=== PATIENT | male | born 1950 | race Caucasian/White ===

== ENCOUNTER 2021-10-25 03:22 | Inpatient (IN) | payer MEDICARE ==
[~2021-10-25] VITALS: Ht 177.8 cm; Wt 69.4 kg
--- NOTE | 2021-10-25 03:40 | NUR ---
TO ER BED 2. BIBS. C/O UPPER ABDOMINAL PAIN X 3 DAYS. AGGREVATED BY EATING. PT IS ALERT AND ORIENTED. AMBULATORY WITH STEADY GAIT. BREATHING IS EVEN AND NON LABORED. CONNECTED TO MONITOR. AWAITING MD ORDERS
[2021-10-25] MEDS ORDERED: ONDANSETRON HCL/PF 4 MG/2 ML VIAL ONE ×2 (03:52→06:00)
[2021-10-25] MEDS ORDERED: ONDANSETRON HCL/PF 4 MG/2 ML VIAL IVP ONE (04:00)
[2021-10-25] MEDS ORDERED: IV NS 0.9% 500 ML BAG IV ONE (04:00)
--- NOTE | 2021-10-25 04:00 | NUR ---
IV LINE ESTABLISHED, RAC20G. BLOOD COLLECTED AND SENT TO LAB
--- NOTE | 2021-10-25 04:03 | NUR ---
XRAY AT BEDSIDE
--- NOTE | 2021-10-25 04:06 | NUR ---
URINE COLLECTED AND SENT TO LAB
[2021-10-25 04:23] LABS: BASOPHILS # (AUTO) 0.1 K/uL (0.0-0.2); BASOPHILS % (AUTO) 0.8 % (0.0-2.0); EOSINOPHILS % (AUTO) 4.9 % (0.0-6.0); HEMATOCRIT 48 % (39-51); HEMOGLOBIN 16.5 g/dL (13.5-17.5); LYMPHOCYTES # (AUTO) 1.9 K/uL (0.8-4.8); LYMPHOCYTES % (AUTO) 18.8 % (20.0-44.0); MEAN CORPUSCULAR HGB CONC 34 g/dl (31.0-36.0); MEAN CORPUSCULAR VOLUME 95 fL (80-96); MONOCYTES # (AUTO) 0.9 K/uL (0.1-1.30); MONOCYTES % (AUTO) 8.7 % (2.0-12.0); NEUTROPHILS # (AUTO) 6.8 K/uL (1.8-8.9); NEUTROPHILS % (AUTO) 66.8 % (43.0-81.0); PLATELET COUNT (AUTO) 193 K/uL (150-450); RED BLOOD CELL COUNT(AUTO) 5.05 MIL/uL (4.5-6.0); WHITE BLOOD COUNT (AUTO) 10.2 K/uL (4.3-11.0)
[2021-10-25 04:28] LABS: BILIRUBIN,URINE MODERATE (NEGATIVE); COLOR,URINE DARK YELLOW (YELLOW); LEUKOCYTE ESTERASE ,URINE NEGATIVE (NEGATIVE); NITRITE, URINE NEGATIVE (NEGATIVE); PH,URINE 6.5 (5.0-8.0); PROTEIN,URINE 30 mg/dl (NEGATIVE); UGLUCOSE NEGATIVE (NEGATIVE)
[2021-10-25 04:39] LABS: CALCIUM, SERUM 8.4 mg/dL (8.5-10.1); CARBON DIOXIDE 30 mmol/L (21-32); CHLORIDE 100 mmol/L (98-107); CREATININE 1.1 mg/dL (0.6-1.3); GLUCOSE 126 mg/dL (74-106); SODIUM SERUM 138 mmol/L (136-145); UREA NITROGEN, BLOOD 12 mg/dL (7-18)
[2021-10-25 04:39] LABS: BACTERIA,URINE Rare /HPF (None Seen); RBC,URINE 0-2 /HPF (0-2); SQUAMOUS EPITHELIAL CELL,UR Few /HPF (None Seen)
[2021-10-25 04:42] LABS: ALANINE AMINOTRANSFERASE 135 U/L (12-78); ALKALINE PHOSPHATASE 236 U/L (46-116); ASPARTATE AMINOTRANSFERASE 73 U/L (15-37); BILIRUBIN,DIRECT 3.8 mg/dL (0.0-0.2); BILIRUBIN,TOTAL 4.6 mg/dL (0.2-1.0); TOTAL PROTEIN, SERUM 7.4 g/dL (6.4-8.2)
[2021-10-25] MEDS ORDERED: POTASSIUM CHLORIDE 20 MEQ TAB.PRT.SR PO ONE ×2 (05:11→05:30)
[2021-10-25] MEDS ORDERED: MORPHINE SULFATE INJ 4 MG/ML DISP.SYRIN ONE (06:00)
[2021-10-25] MEDS ORDERED: ONDANSETRON HCL/PF 4 MG/2 ML VIAL IV ONE (06:00)
[2021-10-25] MEDS ORDERED: MORPHINE SULFATE INJ 2 MG/ML DISP.SYRIN IV ONE (06:00)
[2021-10-25] MEDS ORDERED: ONDANSETRON HCL/PF 4 MG/2 ML VIAL IVP PRN (06:00)
[2021-10-25] MEDS ORDERED: ACETAMINOPHEN 325 MG TABLET PO PRN (06:00)
--- NOTE | 2021-10-25 06:30 | NUR ---
ACCOUNT MANAGER SALES REPRESENTATIVE NOTIFIED.
[2021-10-25 07:40] LABS: LIPASE 150 U/L (73-393)
--- NOTE | 2021-10-25 07:44 | NUR ---
GOT BED 314-1
--- NOTE | 2021-10-25 07:54 | NUR ---
REPORT GIVEN TO JOSE C DELVALLE FOR CARLIE
--- NOTE | 2021-10-25 08:29 | NUR ---
TRANSFERRED TO BED 314 IN STABLE CONDITION
[2021-10-25 09:00] VITALS: BP 135/79
--- NOTE | 2021-10-25 09:00 | NUR ---
MS BEHAVIORAL THERAPIST NOTES RECEIVED PATIENT FROM ER VIA RBAYSIDE ENDORSED BY MOOK OLIVIA. PATIENT IS AWAKE AND A/O X4. ON ROOM AIR TOLERATING WELL. NO SOB NOTED. NOT IN DISTRESS. WITH COMPLAINTS OF ABDOMINAL PAIN AT THE SCALE OF 7 BUT IS NOT ASKING FOR PAIN MEDICATION AT THIS TIME. COMFORT MEASURES PROVIDED. WITH IV ACCESS AT THE RIGHT AC G20, SALINE LOCKED, PATENT AND INTACT. SAFETY MEASURES IN PLACED. CALL LIGHT WITHIN REACH. BED ON LOWEST LOCKED POSITION, SIDE RAILS UP X2. WILL CONTINUE TO MONITOR.
[2021-10-25] MEDS: IV NS 0.9% 1,000 ML IV PRN ×2 (11:53→19:28)
[2021-10-25] MEDS: MORPHINE SULFATE INJ 2 MG/ML DISP.SYRIN IV PRN ×3 (13:05→23:51)
--- NOTE | 2021-10-25 18:34 | NUR ---
MS RN CLOSING NOTES PATIENT ON BED AWAKE AND A/O X4. ON ROOM AIR TOLERATING WELL. NO SOB NOTED. NOT IN DISTRESS. WITH COMPLAINTS OF ABDOMINAL PAIN AT THE SCALE OF 5. COMFORT MEASURES PROVIDED. WITH IV ACCESS AT THE RIGHT AC G20 WITH IVF NS AT 125ML/HR INFUSING WELL, PATENT AND INTACT. FOR ERCP TOMORROW IN AM. NPO POST MIDNIGHT. CONSENTS OBTAINED AND PLACED IN CHART. SAFETY MEASURES IN PLACED. CALL LIGHT WITHIN REACH. BED ON LOWEST LOCKED POSITION, SIDE RAILS UP X2. WILL ENDORSE TO NEXT SHIFT FOR CARLIE.
--- NOTE | 2021-10-25 19:30 | NUR ---
RN OPENING NOTE PATIENT IN BED, AWAKE, PATIENT IS A/O X 4 ABLE TO MAKE NEEDS KNOWN. PATIENT'S SPOUSE AT BEDSIDE. PATIENT IS ON RA, TOLERATING WELL. NO RESPIRATORY DISTRESS NOTED. RAC 20 G RUNNING NS AT 125 ML/HR. PATIENT DOES NOT REPORT OF ANY PAIN AT THIS TIME. SAFETY MEASURES IN PLACE: BED LOCKED AND IN LOWEST POSITION, CALL LIGHT WITHIN REACH, SIDE RAILS UP. WILL MONITOR PATIENT CLOSELY.
[2021-10-25 20:00] VITALS: BP 131/70
--- NOTE | 2021-10-25 23:51 | NUR ---
RN NOTE MORPHINE 2MG IV GIVEN TO PATIENT TO MANAGE SEVERE PAIN. WILL REASSESS PAIN AT A LATER TIME.
[2021-10-26] MEDS: IV NS 0.9% 1,000 ML IV PRN (01:13)
[2021-10-26] MEDS: MORPHINE SULFATE INJ 2 MG/ML DISP.SYRIN IV PRN ×3 (04:25→21:40)
--- NOTE | 2021-10-26 04:25 | NUR ---
RN NOTE MORPHINE 2MG IV GIVEN TO PATIENT TO MANAGE 8/10 PAIN. WILL REASSESS PAIN AT A LATER TIME.
[2021-10-26 07:13] LABS: BASOPHILS % (AUTO) 0.4 % (0.0-2.0); EOSINOPHILS % (AUTO) 1.2 % (0.0-6.0); HEMATOCRIT 46 % (39-51); HEMOGLOBIN 15.8 g/dL (13.5-17.5); LYMPHOCYTES # (AUTO) 1.3 K/uL (0.8-4.8); LYMPHOCYTES % (AUTO) 13.3 % (20.0-44.0); MEAN CORPUSCULAR HGB CONC 35 g/dl (31.0-36.0); MEAN CORPUSCULAR VOLUME 95 fL (80-96); MONOCYTES # (AUTO) 0.7 K/uL (0.1-1.30); MONOCYTES % (AUTO) 7.5 % (2.0-12.0); NEUTROPHILS # (AUTO) 7.7 K/uL (1.8-8.9); NEUTROPHILS % (AUTO) 77.6 % (43.0-81.0); PLATELET COUNT (AUTO) 171 K/uL (150-450); RED BLOOD CELL COUNT(AUTO) 4.83 MIL/uL (4.5-6.0)
[2021-10-26 07:45] LABS: ALBUMIN 3.2 g/dL (3.4-5.0); BILIRUBIN,DIRECT 4.9 mg/dL (0.0-0.2); BILIRUBIN,TOTAL 6.2 mg/dL (0.2-1.0); CALCIUM, SERUM 7.8 mg/dL (8.5-10.1); CREATININE 0.9 mg/dL (0.6-1.3); MAGNESIUM 1.8 mg/dL (1.8-2.4); PHOSPHORUS 1.8 mg/dL (2.5-4.9); POTASSIUM 3.3 mmol/L (3.5-5.1); TOTAL PROTEIN, SERUM 6.2 g/dL (6.4-8.2)
[2021-10-26 08:00] VITALS: BP 133/67
--- NOTE | 2021-10-26 08:00 | NUR ---
RN OPENING NOTE PATIENT RECEIVED IN BED AND AWAKE. A/OX4. NO S/SX OF DISTRESS OBSERVED OR REPORTED. DENIES PAIN AT THIS TIME. ABLE TO VERBALIZE ALL NEEDS. IV ACCESS TO RAC INTACT AND PATENT. NO S/SX OF INFILTRATION OR BLEEDING. AMBULATES TO/FROM BATHROOM WELL ON UNIT WITHOUT ASSIST. REMAINS ON NPO DIET HE HAS SCHEDULED FOR ERCP TODAY ON SHIFT; WILL FOLLOW UP. SAFETY MEASURE SIN PLACE WITH BED IN LOWEST POSITION AND LOCKED SIDERAIL UPX2. CALL LIGHT WITHIN REACH. WILL CONTINUE TO MONITOR.
[2021-10-26] MEDS: POTASSIUM CL. PREMIX PERIPHER. 50 ML IV SCH ×2 (11:03→12:07)
--- NOTE | 2021-10-26 14:15 | NUR ---
RN NOTE PATIENT TAKEN BY BED TO SURGICAL DEPARTMENT FOR SCHEDULED ERCP
[2021-10-26] MEDS ORDERED: IOHEXOL 240MG/ML 100 ML IV ONE (15:33)
[2021-10-26] MEDS ORDERED: INDOMETHACIN 50 MG SUPP.RECT ONE (15:33)
[2021-10-26] MEDS ORDERED: Sodium Phosphate 30 MMOL in IV NS 0.9% 250 ML IV SCH (17:00)
--- NOTE | 2021-10-26 17:20 | NUR ---
RN NOTE PATIENT BROUGHT BACK TO UNIT FROM SURGERY VIA BED. PATIENT AWAKE WITH NO S/SX OF RESPIRATORY DISTRESS OR C/O PAIN AT THIS TIME. WILL CONTINUE TO MONITOR
--- NOTE | 2021-10-26 18:53 | NUR ---
RN CLOSING NOTE PATIENT A/O X4. NO S/SX OF RESPIRATORY DISTRESS. C/O PAIN & NAUSEA ON SHIFT @ 0930. RECEIVED PRN MORPHINE AND ZOFRAN VIA IV ROUTE. MEDICATIONS EFFECTIVE. IV ACCESS TO RAC REMAINS INTACT AND PATENT AT THIS TIME. NO S/SX OF INFILTRATION. REMAINED ON NPO DIET UNTIL TAKEN OFF UNIT @ 1415 FOR SCHEDULED ERCP PROCEDURE. RETURNED BACK TO UNIT @ 1717. TOLERATED PROCEDURE WELL. DIET CHANGED FROM NPO TO REGULAR PER MD ORDER. RECEIVED DINNER TRAY. TOLERATED WELL. AMBULATED TO/FROM BATHROOM MULTIPLE TIMES UPON RETURN FROM SURGERY. CURRENTLY RECEIVING IV FLUID- SODIUM PHOSPHATE @ 43.3MLS/HR FOR 6HRS. TOLERATING FLUIDS WELL. NO CURRENT C/O PAIN AT THIS TIME. STABLE AND ON RA. ABLE TO VERBALIZE NEEDS. SAFETY MEASURES REMAIN INTACT WITH BED IN LOWEST POSITION AND LOCKED. SIDERAILS UPX2. CALL LIGHT WITHIN REACH. WILL CONTINUE TO MONITOR.
--- NOTE | 2021-10-26 19:30 | NUR ---
MS RN OPENING NOTE RECEIVED PATIENT IN BED, A/OX4, NO S/S OF APPARENT DISTRESS, DENIES PAIN AT THIS TIME. 1 VISITOR AT BEDSIDE. IV SODIUM PHOSPHATE RUNNING @43.3MLS/HR. SAFETY IN PLACE. RE-ORIENTED AND ENCOURAGED WITH THE USE OF CALL LIGHT. SAFETY IN PLACE. WILL CONTINUE WITH PLAN OF CARE FOR PATIENT.
[2021-10-26 20:00] VITALS: BP 129/69
[2021-10-27 06:28] LABS: BASOPHILS % (AUTO) 0.1 % (0.0-2.0); HEMATOCRIT 44 % (39-51); LYMPHOCYTES % (AUTO) 11.3 % (20.0-44.0); MEAN CORPUSCULAR HGB CONC 34 g/dl (31.0-36.0); MEAN CORPUSCULAR VOLUME 95 fL (80-96); MONOCYTES # (AUTO) 0.7 K/uL (0.1-1.30); MONOCYTES % (AUTO) 7.2 % (2.0-12.0); NEUTROPHILS # (AUTO) 7.5 K/uL (1.8-8.9); NEUTROPHILS % (AUTO) 81.4 % (43.0-81.0); PLATELET COUNT (AUTO) 179 K/uL (150-450); RED BLOOD CELL COUNT(AUTO) 4.66 MIL/uL (4.5-6.0); WHITE BLOOD COUNT (AUTO) 9.2 K/uL (4.3-11.0)
--- NOTE | 2021-10-27 07:18 | NUR ---
MS RN NOTES RECEIVED PATIENT IN BED AND AWAKE. PATIENT IS A/OX4. NO DISTRESS NOTED. DENIES PAIN AT THIS TIME. ABLE TO VERBALIZE ALL NEEDS. IV ACCESS TO RAC g # 20 INTACT AND PATENT. NO S/SX OF INFILTRATION OR BLEEDING. AMBULATORY. REMAINS ON NPO DIET HE HAS SCHEDULED FOR [facility] POSSIBLE OPEN SURGERY TODAY. SAFETY MEASURE IN PLACE WITH BED IN LOWEST POSITION AND LOCKED SIDERAIL UPX2. CALL LIGHT AND TABLE WITHIN REACH. WILL CONTINUE TO MONITOR.
[2021-10-27 07:22] LABS: CALCIUM, SERUM 8.2 mg/dL (8.5-10.1); MAGNESIUM 2.3 mg/dL (1.8-2.4); POTASSIUM 3.9 mmol/L (3.5-5.1)
--- NOTE | 2021-10-27 07:27 | NUR ---
MS RN CLOSING NOTE NEEDS ATTENDED. REPORT GIVEN TO ANI FOR CONTINUITY OF CARE.
[2021-10-27 08:05] LABS: BILIRUBIN,TOTAL 5.9 mg/dL (0.2-1.0); PHOSPHORUS 2.7 mg/dL (2.5-4.9); TOTAL PROTEIN, SERUM 6.1 g/dL (6.4-8.2)
[2021-10-27] MEDS ORDERED: FENTANYL PF 100MCG/2ML AMPUL ONE (09:31)
[2021-10-27] MEDS ORDERED: ROCURONIUM BROMIDE 50 MG/5 ML ONE (09:32)
[2021-10-27] MEDS ORDERED: ANESTHESIA TRAY IN PYXIS 1 EA TRAY MC ONE (11:26)
[2021-10-27] MEDS ORDERED: BUPIVACAINE MPF 0.5% W/EPI INJ 30 ML VIAL ONE (11:26)
[2021-10-27] MEDS ORDERED: LIDOCAINE 1% INJ 50 ML MDV IJ ONE (11:26)
--- NOTE | 2021-10-27 11:30 | NUR ---
RN NOTES PATIENT LEFT UNIT AT 1126 FOR SURGERY.
[2021-10-27] MEDS ORDERED: LABETALOL HCL IV 100MG VIAL ONE (12:18)
[2021-10-27] MEDS ORDERED: BACITRACIN ZINC OINT (15 GM) 15 GM TUBE TP ONE (13:33)
--- NOTE | 2021-10-27 15:00 | NUR ---
RN NOTES PATIENT ARRIVED FROM SURGERY AT 1500. VITAL SIGNS IN NORMAL RANGES. LU=192/81, P=75, T=98.1, ON 02 = 98%. NO PAIN NO DISTRESS NOTED. WILL CONTINUE TO MONITOR.
[2021-10-27] MEDS: ACETAMINOPHEN 325 MG TABLET PO SCH ×2 (15:10→23:00)
[2021-10-27] MEDS: GABAPENTIN 300 MG CAPSULE PO SCH ×2 (15:10→23:00)
[2021-10-27] MEDS: IBUPROFEN 400 MG TABLET PO SCH ×2 (15:10→23:00)
--- NOTE | 2021-10-27 19:30 | NUR ---
MS RN OPENING NOTE RECEIVED PATIENT IN BED, A/OX4, NO S/S OF APPARENT DISTRESS, PAIN TOLERABLE AT THIS TIME PER PATIENT. NO IV FLUIDS RUNNING AT THIS TIME. RE-ORIENTED AND ENCOURAGED WITH THE USE OF CALL LIGHT. SAFETY IN PLACE. WILL CONTINUE WITH PLAN OF CARE FOR PATIENT.
[2021-10-27 20:14] VITALS: BP 138/75
--- NOTE | 2021-10-27 20:20 | NUR ---
MS RN CLOSING NOTES PATIENT IN BED AND AWAKE. PATIENT IS A/OX4. NO DISTRESS NOTED. DENIES PAIN AT THIS TIME. ABLE TO VERBALIZE ALL NEEDS. IV ACCESS TO RAC g # 20 INTACT AND PATENT. NO S/SX OF INFILTRATION OR BLEEDING. AMBULATORY. ALL DUE MEDS GIVEN ORDERED.ALL SAFETY MEASURE IN PLACE WITH BED IN LOWEST POSITION AND LOCKED SIDERAIL UPX2. CALL LIGHT AND TABLE WITHIN REACH. WILL ENDORS EFOR CARLIE.
[2021-10-27] MEDS: MORPHINE SULFATE INJ 2 MG/ML DISP.SYRIN IV PRN (23:22)
--- NOTE | 2021-10-27 23:38 | NUR ---
MS RN NOTE- NON-ADMIN PATIENT REFUSED SCHEDULED 2300 MOTRIN, NEURONTIN, TYLENOL. PER PATIENT IT MADE HIM HAVE AN UPSET STOMACH EARLIER AND WOULD RATHER WAIT IT OUT AND GET THE MORPHINE WHEN HE NEEDS IT.
[2021-10-28 06:40] LABS: BASOPHILS % (AUTO) 0.2 % (0.0-2.0); HEMATOCRIT 40 % (39-51); HEMOGLOBIN 13.3 g/dL (13.5-17.5); LYMPHOCYTES # (AUTO) 1.3 K/uL (0.8-4.8); LYMPHOCYTES % (AUTO) 11.2 % (20.0-44.0); MEAN CORPUSCULAR HGB CONC 33 g/dl (31.0-36.0); MEAN CORPUSCULAR VOLUME 95 fL (80-96); MONOCYTES # (AUTO) 0.7 K/uL (0.1-1.30); MONOCYTES % (AUTO) 6.4 % (2.0-12.0); NEUTROPHILS # (AUTO) 9.5 K/uL (1.8-8.9); NEUTROPHILS % (AUTO) 82.2 % (43.0-81.0); PLATELET COUNT (AUTO) 191 K/uL (150-450); RED BLOOD CELL COUNT(AUTO) 4.17 MIL/uL (4.5-6.0); WHITE BLOOD COUNT (AUTO) 11.6 K/uL (4.3-11.0)
[2021-10-28 06:53] LABS: ALBUMIN 2.8 g/dL (3.4-5.0); BILIRUBIN,DIRECT 4.8 mg/dL (0.0-0.2); BILIRUBIN,TOTAL 5.5 mg/dL (0.2-1.0); CREATININE 1.1 mg/dL (0.6-1.3); MAGNESIUM 2.2 mg/dL (1.8-2.4); PHOSPHORUS 2.4 mg/dL (2.5-4.9); POTASSIUM 3.6 mmol/L (3.5-5.1); TOTAL PROTEIN, SERUM 5.6 g/dL (6.4-8.2)
[2021-10-28] MEDS: ACETAMINOPHEN 325 MG TABLET PO SCH ×3 (07:06→23:25)
[2021-10-28] MEDS: IBUPROFEN 400 MG TABLET PO SCH ×3 (07:06→23:00)
[2021-10-28] MEDS: GABAPENTIN 300 MG CAPSULE PO SCH ×3 (07:07→23:25)
--- NOTE | 2021-10-28 07:20 | NUR ---
MS RN OPENING NOTE RECEIVED PATIENT IN BED. PATIENT IS ALERT AND ORIENTED X 4. PATIENT IS ON ROOM AIR WITH NO SIGNS AND SYMPTOMS OF RESPIRATORY DISTRESS. PATIENT WITH IV ACCESS ON THE RIGHT AC ON SALINE LOCK, PATENT AND INTACT. WITH 3 DRESSING ON THE ABDOMEN, DRY AND INTACT. CALL LIGHT WITHIN REACH, BED ON LOWEST LOCKED POSITION AND SIDERAILS RAISED FOR SAFETY. SEIZURE PRECAUTIONS ENFORCED. WILL CONTINUE WITH PLAN OF CARE FOR PATIENT.
--- NOTE | 2021-10-28 07:33 | NUR ---
MS RN NOTE CLOSING NEEDS ATTENDED. ENDORSED TO MOOK RAMSEY FOR CONTINUITY OF CARE.
[2021-10-28 08:26] VITALS: BP 126/70
--- NOTE | 2021-10-28 08:30 | NUR ---
MS RN NOTE PATIENT STARTED ON SOFT DIET TOLERATED WELL, IN STABLE CONDITION.
--- NOTE | 2021-10-28 10:30 | NUR ---
MS RN NOTE PATIENT ON NPO PER, DR. FUNK, WILL HAVE ERCP TODAY UNDER DR. MENSAH. PATIENT AND NOTIFIED, WANTS TO SPEAK WITH GI MD BEFORE HE SIGNS THE CONSENT. LEFT MESSAGE TO DR. MENSAH.
[2021-10-28] MEDS ORDERED: DIPHENHYDRAMINE HCL 12.5 MG/5 ML UDC PO ONE (11:00)
[2021-10-28] MEDS ORDERED: K PHOS NEUTRAL 250 MG TABLET PO ONE (11:00)
[2021-10-28] MEDS ORDERED: diphenhydrAMINE HCL 25 MG CAPSULE PO ONE (11:30)
--- NOTE | 2021-10-28 12:10 | NUR ---
MS RN NOTE DR. KOEHLER SPOKE WITH PATIENT.
--- NOTE | 2021-10-28 14:00 | NUR ---
MS RN NOTE SECURED CONSENT AND ATTACHED TO CHART. WILL CONTINUE ON NPO. IN STABLE CONDITION.
[2021-10-28 15:50] VITALS: BP 122/70
--- NOTE | 2021-10-28 16:44 | NUR ---
MS RN NOTE PATIENT FOR ERCP, ORAL MEDICATION HELD INDICATED.
[2021-10-28] MEDS ORDERED: INDOMETHACIN 50 MG SUPP.RECT ONE (18:55)
[2021-10-28] MEDS ORDERED: IOHEXOL 240MG/ML 100 ML IV ONE (18:55)
--- NOTE | 2021-10-28 19:00 | NUR ---
MS RN NOTE PATIENT PICKED UP FOR OR. IN STABLE CONDITION. ENDORSED TO NEXT SHIFT FOR CONTINUITY OF CARE.
--- NOTE | 2021-10-28 19:37 | NUR ---
RN OPENING NOTE PATIENT IS IN OR CURRENTLY. DAY RN, BRAULIO, ENDORSED REPORT TO THIS NURSE.
--- NOTE | 2021-10-28 20:50 | NUR ---
RN NOTE PATIENT RETURNED FROM OR W/ PARTNER WELL ACCOMPANIED BY TWO OR NURSES. PATIENT IS STABLE. A/OX4. VS WNL: BP 145/71, T 97.8, HR 57, R 18, O2 97% ROOM AIR, 0/10 PAIN. PATIENT WAS PLACED ON NC O2 (2L) FOR COMFORT, BUT AFTER HAVING ARRIVED TO ASSIGNED ROOM PATIENT REFUSED NC USE, SATTING WELL W/O DIFFICULTY. PATIENT IS FULLY AMBULATORY, WALKING, TALKING, WAS ABLE TO URINATE AND PASS GAS. PATIENT STABLE; WILL CONTINUE TO MONITOR PATIENT.
--- NOTE | 2021-10-28 22:38 | NUR ---
RN NOTE PATIENT'S SISTER, GIULIANA, CONTACTED THE UNIT TO CHECK ON THE STATUS OF HER BROTHER. ALL INFORMATION VERIFIED OF SISTER AND PATIENT BEFORE PROCEEDING. ALL QUESTIONS AND CONCERNS ADDRESSED. PATIENT STABLE; WILL CONTINUE TO MONITOR PATIENT.
[2021-10-28 23:25] LABS: BASOPHILS % (AUTO) 0.3 % (0.0-2.0); EOSINOPHILS % (AUTO) 1.6 % (0.0-6.0); HEMATOCRIT 40 % (39-51); HEMOGLOBIN 13.6 g/dL (13.5-17.5); LYMPHOCYTES # (AUTO) 1.9 K/uL (0.8-4.8); LYMPHOCYTES % (AUTO) 23.9 % (20.0-44.0); MEAN CORPUSCULAR HGB CONC 34 g/dl (31.0-36.0); MEAN CORPUSCULAR VOLUME 96 fL (80-96); MONOCYTES # (AUTO) 0.5 K/uL (0.1-1.30); MONOCYTES % (AUTO) 6.4 % (2.0-12.0); NEUTROPHILS # (AUTO) 5.3 K/uL (1.8-8.9); NEUTROPHILS % (AUTO) 67.8 % (43.0-81.0); PLATELET COUNT (AUTO) 190 K/uL (150-450); RED BLOOD CELL COUNT(AUTO) 4.15 MIL/uL (4.5-6.0); WHITE BLOOD COUNT (AUTO) 7.8 K/uL (4.3-11.0)
[2021-10-28 23:40] LABS: ALBUMIN 2.7 g/dL (3.4-5.0); BILIRUBIN,TOTAL 4.5 mg/dL (0.2-1.0); CALCIUM, SERUM 7.6 mg/dL (8.5-10.1); POTASSIUM 3.4 mmol/L (3.5-5.1); TOTAL PROTEIN, SERUM 5.6 g/dL (6.4-8.2)
--- NOTE | 2021-10-29 06:42 | NUR ---
RN CLOSING NOTE PATIENT ASLEEP IN BED. A/OX4. NO S/S OF DISTRESS, BREATHING WITHOUT DIFFICULT ON ROOM AIR. RAC #20 SL INTACT AND PATENT. SAFETY MEASURES IN PLACE: BED AT LOWEST POSITION, AND LOCKED, RAILS UP X2, CALL ALMEIDA WITHIN REACH. WILL ENDORSE TO NEXT SHIFT FOR CARLIE.
[2021-10-29 07:06] LABS: BASOPHILS % (AUTO) 0.6 % (0.0-2.0); EOSINOPHILS % (AUTO) 2.8 % (0.0-6.0); HEMATOCRIT 41 % (39-51); HEMOGLOBIN 13.8 g/dL (13.5-17.5); LYMPHOCYTES # (AUTO) 1.5 K/uL (0.8-4.8); MEAN CORPUSCULAR HGB CONC 34 g/dl (31.0-36.0); MEAN CORPUSCULAR VOLUME 95 fL (80-96); MONOCYTES # (AUTO) 0.5 K/uL (0.1-1.30); MONOCYTES % (AUTO) 8.1 % (2.0-12.0); NEUTROPHILS # (AUTO) 4.4 K/uL (1.8-8.9); NEUTROPHILS % (AUTO) 66.5 % (43.0-81.0); PLATELET COUNT (AUTO) 202 K/uL (150-450); RED BLOOD CELL COUNT(AUTO) 4.34 MIL/uL (4.5-6.0); WHITE BLOOD COUNT (AUTO) 6.6 K/uL (4.3-11.0)
[2021-10-29 07:08] LABS: ALBUMIN 2.7 g/dL (3.4-5.0); BILIRUBIN,TOTAL 4.6 mg/dL (0.2-1.0); CALCIUM, SERUM 7.7 mg/dL (8.5-10.1); CREATININE 0.9 mg/dL (0.6-1.3); MAGNESIUM 2.1 mg/dL (1.8-2.4); PHOSPHORUS 2.9 mg/dL (2.5-4.9); TOTAL PROTEIN, SERUM 5.7 g/dL (6.4-8.2)
[2021-10-29 07:30] LABS: POTASSIUM 3.7 mmol/L (3.5-5.1)
--- NOTE | 2021-10-29 07:40 | NUR ---
RN OPENING NOTE PATIENT RECEIVED IN BED AND AWAKE. A/OX4. NO S/SX OF DISTRESS OBSERVED OR REPORTED. S/P ERCP PERFORMED ON 10/27/21. DENIES PAIN AT THIS TIME. ABLE TO VERBALIZE ALL NEEDS. IV ACCESS TO RFA INTACT AND PATENT. NO S/SX OF INFILTRATION OR BLEEDING. AMBULATES TO/FROM BATHROOM WELL ON UNIT AND THROUGHOUT BEDROOM WITHOUT ASSIST. SAFETY MEASURES IN PLACE WITH BED IN LOWEST POSITION AND LOCKED SIDERAIL UPX2. CALL LIGHT WITHIN REACH. WILL CONTINUE TO MONITOR.
[2021-10-29 08:00] VITALS: BP_SYST 124; BP_SYST 147; BP_DIAS 75; BP_DIAS 79
[2021-10-29] MEDS: ACETAMINOPHEN 325 MG TABLET PO SCH ×5 (08:16→23:34)
[2021-10-29] MEDS: IBUPROFEN 400 MG TABLET PO SCH ×4 (08:16→23:33)
[2021-10-29] MEDS: GABAPENTIN 300 MG CAPSULE PO SCH ×4 (08:16→23:34)
--- NOTE | 2021-10-29 18:18 | NUR ---
RN CLOSING NOTE PATIENT A/O X4. NO S/SX OF RESPIRATORY DISTRESS. NO C/O PAIN. IV ACCESS TO RA REMAINS INTACT AND PATENT AT THIS TIME; CURRENTLY SALINE LOCKED. NO S/SX OF INFILTRATION. OBSERVED AMBULATING TO/FROM BATHROOM WELL ON UNIT. MULTIPLE TIMES UPON RETURN FROM SURGERY. REMAINS STABLE AND ON RA. ABLE TO VERBALIZE NEEDS. SAFETY MEASURES REMAIN INTACT WITH BED IN LOWEST POSITION AND LOCKED. SIDERAILS UPX2. CALL LIGHT WITHIN REACH. WILL CONTINUE TO MONITOR.
--- NOTE | 2021-10-29 19:43 | NUR ---
RN OPENING NOTE PATIENT A/O X4. NO S/SX OF RESPIRATORY DISTRESS. NO C/O PAIN. IV ACCESS TO RA REMAINS INTACT AND PATENT AT THIS TIME; CURRENTLY SALINE LOCKED. NO S/SX OF INFILTRATION. OBSERVED AMBULATING TO/FROM BATHROOM WELL ON UNIT. REMAINS STABLE AND ON RA. ABLE TO VERBALIZE NEEDS. SAFETY MEASURES REMAIN INTACT WITH BED IN LOWEST POSITION AND LOCKED. SIDERAILS UPX2. CALL LIGHT WITHIN REACH. WILL CONTINUE TO MONITOR.
[2021-10-29 20:10] VITALS: BP 134/76
[2021-10-30 06:27] LABS: BASOPHILS % (AUTO) 0.6 % (0.0-2.0); EOSINOPHILS % (AUTO) 6.2 % (0.0-6.0); HEMATOCRIT 42 % (39-51); HEMOGLOBIN 14.3 g/dL (13.5-17.5); LYMPHOCYTES # (AUTO) 1.5 K/uL (0.8-4.8); LYMPHOCYTES % (AUTO) 23.2 % (20.0-44.0); MEAN CORPUSCULAR HGB CONC 34 g/dl (31.0-36.0); MEAN CORPUSCULAR VOLUME 95 fL (80-96); MONOCYTES # (AUTO) 0.5 K/uL (0.1-1.30); MONOCYTES % (AUTO) 7.8 % (2.0-12.0); NEUTROPHILS % (AUTO) 62.2 % (43.0-81.0); PLATELET COUNT (AUTO) 225 K/uL (150-450); RED BLOOD CELL COUNT(AUTO) 4.44 MIL/uL (4.5-6.0); WHITE BLOOD COUNT (AUTO) 6.5 K/uL (4.3-11.0)
--- NOTE | 2021-10-30 06:51 | NUR ---
RN CLOSING NOTE PATIENT A/O X4. NO S/SX OF RESPIRATORY DISTRESS. NO C/O PAIN. IV ACCESS TO RA REMAINS INTACT AND PATENT AT THIS TIME; CURRENTLY SALINE LOCKED. NO S/SX OF INFILTRATION. OBSERVED AMBULATING TO/FROM BATHROOM WELL ON UNIT. REMAINS STABLE AND ON RA. ABLE TO VERBALIZE NEEDS. SAFETY MEASURES REMAIN INTACT WITH BED IN LOWEST POSITION AND LOCKED. SIDERAILS UPX2. CALL LIGHT WITHIN REACH. WILL ENDORSE CARE TO AY SHIFT NURSE FOR CARLIE.
[2021-10-30 07:01] LABS: ALBUMIN 2.8 g/dL (3.4-5.0); BILIRUBIN,TOTAL 4.3 mg/dL (0.2-1.0); CALCIUM, SERUM 8.3 mg/dL (8.5-10.1); POTASSIUM 3.9 mmol/L (3.5-5.1); TOTAL PROTEIN, SERUM 5.9 g/dL (6.4-8.2)
[2021-10-30] MEDS: ACETAMINOPHEN 325 MG TABLET PO SCH (07:04)
[2021-10-30] MEDS: GABAPENTIN 300 MG CAPSULE PO SCH (07:04)
[2021-10-30] MEDS: IBUPROFEN 400 MG TABLET PO SCH (07:04)
[2021-10-30 08:00] VITALS: BP 139/75
[2021-10-30] MEDS ORDERED: CALCIUM CARB 600MG /VIT D 1 EACH TABLET PO SCH (09:00)
[2021-10-30] MEDS ORDERED: IBUP-1958 PO (11:31)
== END 2021-10-30 12:00 | disposition home or self-care (01) | DRG 418 ==
LOC: ER 03:41 → MED 07:58
PROVIDERS: ATTEND Nurse Practitioner Acute Care
PROC: 0F798DZ Dilation of Common Bile Duct with Intraluminal Device, Via Natural or Artificial Opening Endoscopic (ICD-10-PCS; 2021-10-26)
PROC: 0FT44ZZ Resection of Gallbladder, Percutaneous Endoscopic Approach (ICD-10-PCS; principal; 2021-10-27)
PROC: 0FPB8DZ Removal of Intraluminal Device from Hepatobiliary Duct, Via Natural or Artificial Opening Endoscopic (ICD-10-PCS; 2021-10-28)
PROC: 0FC98ZZ Extirpation of Matter from Common Bile Duct, Via Natural or Artificial Opening Endoscopic (ICD-10-PCS; 2021-10-28)
PROC: 0F798DZ Dilation of Common Bile Duct with Intraluminal Device, Via Natural or Artificial Opening Endoscopic (ICD-10-PCS; 2021-10-28)
DX: K80.67 Calculus of gallbladder and bile duct with acute and chronic cholecystitis with obstruction (principal); R17 Unspecified jaundice; Z20.822 Contact with and (suspected) exposure to COVID-19; E87.6 Hypokalemia
CPT/HCPCS: 36415; 71045-TC; 74181-TC; 76705-TC; 80048-TC; 80053-TC; 80076-TC; 81001; 83605-TC; 83690-TC; 83735-TC; 84100-TC; 84484-TC; 85025-TC; 85730-TC; 87081-TC; A9563; C2625; C9803; G0378; J0330; J0690; J1100; J1885; J2270; J2405; J2704; J3010; J3480; J3490; J7030; J7040; J7050; Q0163; Q9966

== ENCOUNTER 2023-01-27 15:22 | Inpatient (IN) | payer MEDICARE, BC ==
[~2023-01-27] VITALS: Ht 170.2 cm; Wt 70.3 kg
[~2023-01-27 15:22] MED LIST: IBUP-1958 PO
[2023-01-27 15:53] VITALS: TEMP 98.1
[2023-01-27 16:05] LABS: BASOPHILS % (AUTO) 0.1 % (0.0-2.0); EOSINOPHILS # (AUTO) 0.1 K/uL (0.0-0.7); EOSINOPHILS % (AUTO) 0.4 % (0.0-6.0); HEMATOCRIT 46 % (39-51); LYMPHOCYTES # (AUTO) 0.9 K/uL (0.8-4.8); LYMPHOCYTES % (AUTO) 6.4 % (20.0-44.0); MEAN CORPUSCULAR HEMOGLOBIN 31 PG (26.0-33.0); MEAN CORPUSCULAR HGB CONC 33 g/dl (31.0-36.0); MEAN CORPUSCULAR VOLUME 94 fL (80-96); MONOCYTES # (AUTO) 0.7 K/uL (0.1-1.30); NEUTROPHILS # (AUTO) 12.3 K/uL (1.8-8.9); NEUTROPHILS % (AUTO) 88.1 % (43.0-81.0); PLATELET COUNT (AUTO) 260 K/uL (150-450); RED BLOOD CELL COUNT(AUTO) 4.86 MIL/uL (4.5-6.0); RED CELL DISTRIBUTION WIDTH 13.3 % (11.5-15.0)
[2023-01-27] MEDS ORDERED: LORA-259 PO (16:31)
[2023-01-27] MEDS ORDERED: METH5TAB2 PO (16:31)
[2023-01-27 16:33] LABS: CALCIUM, SERUM 8.9 mg/dL (8.5-10.1); CARBON DIOXIDE 28 mmol/L (21-32); CHLORIDE 102 mmol/L (98-107); CREATININE 0.9 mg/dL (0.6-1.3); GLUCOSE 110 mg/dL (74-106); POTASSIUM 4.2 mmol/L (3.5-5.1); SODIUM SERUM 138 mmol/L (136-145); UREA NITROGEN, BLOOD 11 mg/dL (7-18)
[2023-01-27 16:46] LABS: ALANINE AMINOTRANSFERASE 33 U/L (12-78); ALBUMIN 3.9 g/dL (3.4-5.0); ALKALINE PHOSPHATASE 78 U/L (46-116); ASPARTATE AMINOTRANSFERASE 26 U/L (15-37); BILIRUBIN,DIRECT 0.1 mg/dL (0.0-0.2); BILIRUBIN,TOTAL 0.4 mg/dL (0.2-1.0)
[2023-01-27 16:47] LABS: ACETAMINOPHEN 0 ug/ml (10-30); ALCOHOL, BLOOD < 3 mg/dL (0-10); SALICYLATE 1.2 mg/dL (2.8-20.0)
[2023-01-27] MEDS ORDERED: LEVOFLOXACIN 750 MG /D5W 150ML PIGGYBACK IV ONE (19:00)
[2023-01-27] MEDS ORDERED: LEVOFLOXACIN 750 MG /D5W 150ML 150 ML IV ONE (19:08)
[2023-01-27 20:14] LABS: APPEARANCE,URINE CLEAR (CLEAR); BILIRUBIN,URINE NEGATIVE (NEGATIVE); BLOOD, URINE NEGATIVE Ery/uL (NEGATIVE); COLOR,URINE YELLOW (YELLOW); KETONES,URINE NEGATIVE (NEGATIVE); LEUKOCYTE ESTERASE ,URINE NEGATIVE (NEGATIVE); NITRITE, URINE NEGATIVE (NEGATIVE); PH,URINE 5.5 (5.0-8.0); PROTEIN,URINE TRACE mg/dl (NEGATIVE); UGLUCOSE NEGATIVE (NEGATIVE); UROBILINOGEN,URINE 0.2 EU/dL (0.2)
[2023-01-27 20:32] LABS: AMPHETAMINE, URINE NEGATIVE (NEGATIVE); BARBITURATE, URINE NEGATIVE (NEGATIVE); CANNABINOID, URINE NEGATIVE (NEGATIVE); PHENCYCLIDINE SCREEN,URINE NEGATIVE (NEGATIVE)
[2023-01-27 20:50] LABS: BENZODIAZEPINE, URINE POSITIVE (NEGATIVE); COCCAINE, URINE POSITIVE (NEGATIVE); OPIATE, URINE POSITIVE (NEGATIVE)
[2023-01-27 22:00] LABS: RBC,URINE 0-2 /HPF (0-2)
[2023-01-27 22:01] LABS: ADD URINE CULTURE NO; BACTERIA,URINE Rare /HPF (None Seen); SQUAMOUS EPITHELIAL CELL,UR Rare /HPF (None Seen); WBC,URINE NONE SEEN /HPF (0-3)
[2023-01-27] MEDS ORDERED: MAGNESIUM HYDROXIDE 30 ML UDC PO PRN (23:30)
[2023-01-27] MEDS ORDERED: MAG HYDROX/AL HYDROX/SIMETH 30 ML UDC PO PRN (23:30)
[2023-01-27] MEDS ORDERED: Z GUARD REMEDY 4 OZ OINT TP PRN (23:30)
[2023-01-27] MEDS ORDERED: ACETAMINOPHEN 325 MG TABLET PO PRN (23:30)
[2023-01-27] MEDS ORDERED: IV NS 0.9% 1,000 ML IV SCH (23:30)
[2023-01-27] MEDS ORDERED: ONDANSETRON HCL/PF 4 MG/2 ML VIAL IVP PRN (23:30)
[2023-01-28 05:40] LABS: CARBON DIOXIDE 28 mmol/L (21-32); CHLORIDE 99 mmol/L (98-107); CREATININE 0.9 mg/dL (0.6-1.3); GLUCOSE 90 mg/dL (74-106); PHOSPHORUS 3.4 mg/dL (2.5-4.9); POTASSIUM 3.7 mmol/L (3.5-5.1); SODIUM SERUM 136 mmol/L (136-145); UREA NITROGEN, BLOOD 11 mg/dL (7-18)
[2023-01-28 05:45] LABS: BASOPHILS % (AUTO) 0.4 % (0.0-2.0); EOSINOPHILS # (AUTO) 0.4 K/uL (0.0-0.7); EOSINOPHILS % (AUTO) 3.7 % (0.0-6.0); HEMATOCRIT 44 % (39-51); HEMOGLOBIN 14.7 g/dL (13.5-17.5); LYMPHOCYTES # (AUTO) 2.1 K/uL (0.8-4.8); MEAN CORPUSCULAR HEMOGLOBIN 31 PG (26.0-33.0); MEAN CORPUSCULAR HGB CONC 33 g/dl (31.0-36.0); MEAN CORPUSCULAR VOLUME 94 fL (80-96); MONOCYTES # (AUTO) 0.9 K/uL (0.1-1.30); MONOCYTES % (AUTO) 9.7 % (2.0-12.0); NEUTROPHILS # (AUTO) 6.4 K/uL (1.8-8.9); NEUTROPHILS % (AUTO) 65.2 % (43.0-81.0); PLATELET COUNT (AUTO) 262 K/uL (150-450); RED BLOOD CELL COUNT(AUTO) 4.72 MIL/uL (4.5-6.0); RED CELL DISTRIBUTION WIDTH 13.1 % (11.5-15.0); WHITE BLOOD COUNT (AUTO) 9.8 K/uL (4.3-11.0)
[2023-01-28 06:02] VITALS: BP 175/89; O2SAT 98
[2023-01-28] MEDS ORDERED: METHADONE HCL 5 MG TABLET PO SCH (09:00)
== END 2023-01-28 08:00 | disposition left against medical advice (07) | DRG 917 ==
LOC: ER 15:29 → TRANSITION 23:58
PROVIDERS: ADMIT Internal Medicine; ATTEND Nurse Practitioner Acute Care
DX: T40.3X1A Poisoning by methadone, accidental (unintentional), initial encounter (principal); J96.01 Acute respiratory failure with hypoxia; R45.851 Suicidal ideations; R65.10 Systemic inflammatory response syndrome (SIRS) of non-infectious origin without acute organ dysfunction; T42.4X1A Poisoning by benzodiazepines, accidental (unintentional), initial encounter; Y92.9 Unspecified place or not applicable; T40.5X1A Poisoning by cocaine, accidental (unintentional), initial encounter; F32.A Depression, unspecified; Z88.0 Allergy status to penicillin; Z79.899 Other long term (current) drug therapy; D72.829 Elevated white blood cell count, unspecified; F11.10 Opioid abuse, uncomplicated
CPT/HCPCS: 36415; 71045-TC; 80048-TC; 80076-TC; 81001; 83735-TC; 84100-TC; 85025-TC; G0378; G0480; J1956; J2405; J7030